=== PATIENT | female | born 2000 | race Caucasian/White ===

== ENCOUNTER 2019-05-24 19:38 | Emergency (ER) | payer OTHER ==
[~2019-05-24] VITALS: Ht 157.5 cm; Wt 61.2 kg
[2019-05-24 20:58] VITALS: BP 124/72
== END 2019-05-24 20:59 | disposition home or self-care (01) ==
LOC: ED 19:38
DX: R04.0 Epistaxis (principal); J45.909 Unspecified asthma, uncomplicated

== ENCOUNTER 2020-05-22 17:54 | Emergency (ER) | payer OTHER ==
[~2020-05-22] VITALS: Ht 167.6 cm; Wt 72.6 kg
[2020-05-22 18:00] VITALS: Ht 167.6 cm; Wt 72.6 kg
[2020-05-22 19:15] VITALS: BP 131/83
== END 2020-05-22 19:15 | disposition home or self-care (01) ==
LOC: ED 17:54
DX: D18.09 Hemangioma of other sites (principal); J45.909 Unspecified asthma, uncomplicated

== ENCOUNTER 2020-05-23 17:18 | Emergency (ER) | payer OTHER ==
[~2020-05-23] VITALS: Ht 157.5 cm; Wt 60.3 kg
[2020-05-23 17:25] VITALS: Ht 157.5 cm; Wt 60.3 kg
[2020-05-23 18:41] LABS: BASOPHIL % 0.6 % (0.2-1.3); PLATELET COUNT 284 x10^3mcL (179-408)
[2020-05-23 18:44] LABS: RED CELL DISTRIBUTION WIDTH 15.8 % (12.3-17.7)
[2020-05-23 19:40] VITALS: BP 104/68
== END 2020-05-23 20:04 | disposition home or self-care (01) ==
LOC: ED 17:18
PROVIDERS: Emergency Medicine
DX: D18.09 Hemangioma of other sites (principal)